=== PATIENT | male | born 1960 | race Caucasian/White ===

== ENCOUNTER → 2017-11-30 17:45 | Outpatient (REF) | payer BC, SELFPAY | LOC: LAB 17:45 | PROVIDERS: Visit Provider Internal Medicine | DX: L72.3 Sebaceous cyst (principal) | CPT/HCPCS: 87070; 87077; 87186; 87205 ==

== ENCOUNTER → 2018-02-15 10:56 | Outpatient (CLI) | payer BC, SELFPAY ==
--- NOTE | 2018-02-15 11:04 | XR_ITS ---
XR foot wt bearing RT 3V HISTORY: Bilateral foot pain ITS.REASON: pain ORDERING PHYSICIAN: Jocelyn Taylor DPM PATIENT AGE: 57 years COMPARISON: None FINDINGS: There are mild osteoarthritic changes of the first metatarsophalangeal joint with a bony spur along the posterior distal aspect of the first metatarsal and some soft tissue calcification along the proximal medial aspect and distal aspect of the first metatarsal. No fracture or dislocation. There is mild pes planus. 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
--- NOTE | 2018-02-15 11:04 | XR_ITS ---
XR foot wt bearing LT 3V HISTORY: ITS.REASON: pain ORDERING PHYSICIAN: Jocelyn Taylor DPM PATIENT AGE: 57 years COMPARISON: FINDINGS: There are minimal osteoarthritic changes of the first metatarsophalangeal joint and there is mild pes planus. Small calcaneal spur also noted at 4 mm. Mild hypertrophic changes are present at the distal aspect of the first metatarsal. No fracture or dislocation. No other significant anomalies. IMPRESSION: Mild osteoarthritis of the first MTP joint with pes planus
== END ==
PROVIDERS: PCP Internal Medicine; Visit Provider Podiatrist
DX: M79.671 Pain in right foot (principal); M79.672 Pain in left foot
CPT/HCPCS: 73630

== ENCOUNTER → 2018-04-05 10:45 | Outpatient (CLI) | payer BC, SELFPAY ==
--- NOTE | 2018-04-05 10:59 | XR_ITS ---
XR hip LT 2-3V w/pelvis HISTORY: ITS.REASON: LEFT HIP PAIN, S/P INJURY ORDERING PHYSICIAN: Ricky Morgan PATIENT AGE: 57 years COMPARISON: None FINDINGS: No fracture or dislocation is evident. No significant degenerative change. No lytic or blastic change. Unremarkable soft tissues IMPRESSION: Negative hip
== END ==
PROVIDERS: PCP Internal Medicine; Visit Provider Internal Medicine
DX: M25.552 Pain in left hip (principal)
CPT/HCPCS: 73502

== ENCOUNTER → 2019-07-08 13:15 | Outpatient (CLI) | payer BC, SELFPAY ==
--- NOTE | 2019-07-08 13:20 | CA_ITS ---
APPROVED REPORT EXAM: Comprehensive 2D, Doppler, and color-flow Echocardiogram Chin Strap Maker: Chrissie Alfaro RVT Ht: 5 ft 11 in Wt: 200lbs BSA: 2.11 BP: 140/90 mmHg Indications: Hypertension/HDD 2D Dimensions LVOT 1.74 cm (M/F) 1.5-2.5 M-Mode Dimensions RVDd 2.96 cm (0.9-2.6) LVDd 4.78 cm (3.5-5.7) LVDs 3.49 cm (3.5-5.7) IVSd 1.10 cm (0.6-1.1) PWd 0.87 cm (0.6-1.1) EF (Teich) 52.60% FS 27.00% EDV (Teich) 106.50 mL ESV (Teich) 50.50 mL LV Diastology E/A Ratio 1.13 Mitral Valve MV A Velocity 63.00 (40-130 cm/s) Left Ventricle Left atrium is mildly enlarged, left ventricle is normal size, mild concentric left ventricular hypertrophy, visually estimated ejection fraction 55% with no regional wall motion abnormality. Grade 1 diastolic dysfunction seen without tissue Doppler evidence of raise left atrial pressure. Right Ventricle Right atrium and right ventricular normal size and contractility. Aortic Valve Aortic valve is minimally thickened and fibrosed. There is no aortic stenosis aortic insufficiency. Mitral Valve Mitral valve is grossly normal, there is mild mitral regurgitation. Tricuspid Valve Tricuspid valve is grossly normal, there is mild tricuspid regurgitation. Tricuspid regurgitation jet velocity is inadequate for calculation of the right ventricular systolic pressure. Pulmonic Valve Pulmonic valve is poorly visualized. Great Vessels Aortic root is normal size. Pericardium No significant pericardial effusion noted. Conclusion 1. Mildly low left atrium, normal left ventricular size, mild concentric left ventricular hypertrophy, visually estimated ejection fraction 55% with no regional wall motion abnormality. Grade 1 diastolic dysfunction seen without tissue Doppler evidence of raise left atrial pressure. 2. Mild mitral and tricuspid regurgitation. 3. No significant pericardial effusion noted. Electronically signed by : John Suggs, 07/08/2019 15:30:09
== END ==
PROVIDERS: PCP Internal Medicine; Visit Provider Internal Medicine
DX: I10 Essential (primary) hypertension (principal)
CPT/HCPCS: 93306

== ENCOUNTER → 2021-04-09 16:25 | Outpatient (CLI) | payer BC, SELFPAY ==
[2021-04-09 18:35] LABS: Prostate Specific Ag, Diagnost 1.14 ng/ml (0.0-4.0)
== END ==
PROVIDERS: Visit Provider Internal Medicine
DX: N40.1 Benign prostatic hyperplasia with lower urinary tract symptoms (principal)
CPT/HCPCS: 84153

== ENCOUNTER → 2021-08-12 10:55 | Outpatient (CLI) | payer BC, SELFPAY | PROVIDERS: PCP Internal Medicine; Visit Provider Nurse Practitioner | DX: Z20.822 Contact with and (suspected) exposure to COVID-19 (principal) | CPT/HCPCS: C9803; U0003; U0005 ==

== ENCOUNTER → 2021-09-17 10:49 | Outpatient (CLI) | payer BC, SELFPAY | PROVIDERS: Visit Provider Nurse Practitioner | DX: U07.1 COVID-19 (principal) | CPT/HCPCS: C9803; U0003; U0005 ==

== ENCOUNTER → 2021-11-15 10:48 | Outpatient (CLI) | payer BC, SELFPAY ==
--- NOTE | 2021-11-15 10:59 | XR_ITS ---
FINAL REPORT CLINICAL HISTORY: pain COMPARISON: February 15, 2018 FINDINGS: LEFT FOOT: Three weight-bearing views of the left foot were obtained. There is no acute fracture or dislocation. There is mild degenerative change. There is a pes planus deformity. There is a small plantar calcaneal spur. There is no soft tissue abnormality. IMPRESSION: Mild degenerative change. Reviewed, Interpreted and Dictated by Robert Candelaria III, MD Transcribed by Jarocho Giles Authenticated by Robert Candelaria III, MD on 11/15/2021 12:40:38 PM [facility]
--- NOTE | 2021-11-15 10:59 | XR_ITS ---
FINAL REPORT CLINICAL HISTORY: pain COMPARISON: February 15, 2018 FINDINGS: RIGHT FOOT: Three weight-bearing views of the right foot were obtained. There is no acute fracture or dislocation. There is [id number] degenerative change of the 1st MTP joint. There is pes planus deformity. There is a small plantar calcaneal spur. There is no soft tissue abnormality. IMPRESSION: [id number] degenerative change of the 1st MTP joint. Reviewed, Interpreted and Dictated by Robert Candelaria III, MD Transcribed by Jarocho Giles Authenticated by Robert Candelaria III, MD on 11/15/2021 12:40:41 PM [facility]
== END ==
PROVIDERS: PCP Internal Medicine; Visit Provider Podiatrist
DX: M79.672 Pain in left foot (principal); M79.671 Pain in right foot
CPT/HCPCS: 73630

== ENCOUNTER → 2022-07-31 11:31 | Outpatient (CLI) | payer BC, SELFPAY ==
[2022-07-31 13:01] LABS: Basophils # 0.1 K/mm3 (0-0.2); Basophils % 1.8 % (0.1-2.0); Eosinophils # 0.1 K/mm3 (0.0-0.4); Eosinophils % 1.2 % (0.1-12.0); Hematocrit 48.6 % (42.0-52.0); Hemoglobin 15.2 g/dL (14.1-18.0); Lymphocytes # 2.7 K/mm3 (0.7-4.5); Lymphocytes % 39.3 % (10-50); Mean Corpuscular HGB Conc 31.2 g/dL (31.8-35.4); Mean Corpuscular Hemoglobin 29.8 pg (27.0-31.2); Mean Corpuscular Volume 95.4 fl (80-94); Mean Platelet Volume 9.1 fl (7.4-10.4); Monocytes # 0.5 K/mm3 (0.1-1.0); Monocytes % 7.7 % (1.7-9.3); Neutrophils # 3.5 K/mm3 (1.8-7.8); Neutrophils % 50.1 % (37.0-80.0); Platelet Count 375 K/mm3 (142-424); Red Blood Count 5.09 M/mm3 (4.60-6.20); Red Cell Distribution Width 13.2 % (11.5-17.5); White Blood Count 6.9 K/mm3 (4.8-10.8)
[2022-07-31 13:31] LABS: Anion Gap 9.1 mEq/L (5-15); Blood Urea Nitrogen 16 mg/dl (9-20); Calcium 9.8 mg/dl (8.4-10.2); Carbon Dioxide 32 mmol/L (22.0-30.0); Chloride 103 mmol/L (98-107); Estimated Glomerular Filt Rate 76 ml/min (>60); GFR (African American) 92 ML/MIN (>60); Glucose 83 mg/dl (74-100); Potassium 4.1 mmoL/L (3.5-5.1); Sodium 140 mmol/L (136-145)
== END ==
PROVIDERS: PCP Internal Medicine; Visit Provider Surgery
DX: L72.3 Sebaceous cyst (principal)
CPT/HCPCS: 36415; 80048; 85025

== ENCOUNTER 2022-09-01 08:06 | Day surgery (SDC) | payer BC, SELFPAY ==
[2022-08-15 10:34] VITALS: BMI 29.2
[2022-09-01] VITALS (11 sets, daily range): BP systolic 121–155; BP diastolic 62–100; PULSE 76–82; RESP 15–18; TEMP 36.4–43; O2SAT 92–97
--- NOTE | 2022-09-01 08:53 | P.HP_ITS ---
HPI HPI HPI: Patient is a 61-year-old male referred by Dr. Morgan for sebaceous cyst on the chest.? I had previously seen the patient for a colonoscopy.? He had developed a small nodule consistent with a sebaceous cyst on the right upper chest many years ago.? He does state that he had previously seen a site surveyor who had advised against excising the area.? He had previously had this drained years ago.? About 4 or 6 weeks ago it had become inflamed and infected and he had incision and drainage performed by his primary care provider.? He was on antibiotics.? Patient states that the area has improved but he is a persistent nodule.? He states that it often swells and increases in size and he squeezes it to drain it in the evenings. [facility] Disclaimer: The information contained in this section may have been updated after the patient was seen, as this information can be updated by other users. Medical History Enlarged prostate History of COVID-19 Surgical History No significant past surgical history Family History No significant family history Social History Smoking Status: Never smoker alcohol intake: never substance use type: denies use current occupational status: employed Travel in the last 8 weeks: None Review of Systems Review of Systems Review of systems:: pertinent systems reviewed and negative unless documented below Meds Home Medications and Allergies Home Medications Medication Instructions Recorded Confirmed Type finasteride 5 mg tablet 0.5 mg PO DAILY enlarged prostate 04/13/18 09/01/22 History 30 days ##30 New Prescriptions to Start Prescriptions: Allergies Allergy/AdvReac Type Severity Reaction Status Date / Time No Known Allergies Allergy Verified 09/01/22 08:29 Exam Data for Last 24 hours Vital signs and Labs for Last 24 Hours: Temp Pulse Resp BP Pulse Ox 98.0 F 76 16 155/100 H 95 09/01/22 08:30 09/01/22 08:30 09/01/22 08:30 09/01/22 08:30 09/01/22 08:30 *Routine HEENT Exam Head: Present normocephalic Eye: Present EOMI ENT: Present mucous membranes moist *Routine Neck Exam Neck: Present supple Routine Chest/Breast/Axilla Exam Comments: Small sebaceous cyst right upper chest. *Routine Respiratory Exam Respiratory: Present accessory muscle use *Routine Cardiovascular Exam Cardiovascular: Present RRR *Routine Abdominal Exam Abdominal: Present soft *Routine Rectal Exam Rectal:: deferred *Routine Genitalia Exam Genitalia:: deferred Assessment and Plan *Assessment and plan (1) Sebaceous cyst: Status: Acute Category: Medical Code(s): L72.3 - Sebaceous cyst Plan Plan for excision hopefully with primary closure.
--- NOTE | 2022-09-01 08:53 | P.HP_ITS ---
[facility] Disclaimer: The information contained in this section may have been updated after the patient was seen, as this information can be updated by other users. Medical History Enlarged prostate History of COVID-19 Surgical History No significant past surgical history Family History No significant family history Social History Smoking Status: Never smoker alcohol intake: never substance use type: denies use current occupational status: employed Travel in the last 8 weeks: None Meds Home Medications and Allergies Home Medications Medication Instructions Recorded Confirmed Type finasteride 5 mg tablet 0.5 mg PO DAILY enlarged prostate 04/13/18 09/01/22 History 30 days ##30 New Prescriptions to Start Prescriptions: Allergies Allergy/AdvReac Type Severity Reaction Status Date / Time No Known Allergies Allergy Verified 09/01/22 08:29 Exam Data for Last 24 hours Vital signs and Labs for Last 24 Hours: Temp Pulse Resp BP Pulse Ox 98.0 F 76 16 155/100 H 95 09/01/22 08:30 09/01/22 08:30 09/01/22 08:30 09/01/22 08:30 09/01/22 08:30 *Routine HEENT Exam Head: Present normocephalic Eye: Present EOMI ENT: Present mucous membranes moist *Routine Respiratory Exam Respiratory: Absent accessory muscle use *Routine Cardiovascular Exam Cardiovascular: Present RRR *Routine Abdominal Exam Abdominal: Present soft *Routine Rectal Exam Rectal:: deferred *Routine Genitalia Exam Genitalia:: deferred
--- NOTE | 2022-09-01 09:38 | P.OP_ITS ---
Date of procedure: 09/01/22 Pre-op Diagnosis:: Sebaceous cyst right upper chest Post-op Diagnosis:: Same Procedure performed:: Excision of noninfected sebaceous cyst right upper chest, (excisional length 3.0 cm) with intermediate complexity closure Surgeon:: Robert Knight MD DISPATCHER CHIEF OIL:: Shant Miller Anesthesia: LMA Estimated blood loss (mL): 7 Operative findings:: Consistent with previously ruptured ill-defined sebaceous cyst with fibrosis Operative note:: Patient was taken the operating room. He was positioned in supine position. General anesthesia was induced via LMA. Area was prepped and draped in the standard surgical fashion. Skin was marked with skin marker for planned crescent-shaped elliptical incision to excise previous incision and drainage scar and skin punctum. Skin incision was made. Incision was carried down through full-thickness of skin to underlying fibrosis consistent with previously inflamed ruptured sebaceous cyst. There was no evidence of any infection. Skin ellipse with residual cyst tissue was dissected free from normal subcutaneous tissue and sent off as a specimen. Wound was irrigated. Hemostasis was achieved with electrocautery. Deep dermal tissues were closed with interrupted 2-0 Vicryl. Skin was closed with interrupted 3-0 nylon. Clean dry sterile dressing was applied. Condition: stable Disposition: PACU Complications:: None immediate
--- NOTE | 2022-09-01 09:43 | P.PN_ITS ---
[facility] Disclaimer: The information contained in this section may have been updated after the patient was seen, as this information can be updated by other users. Medical History Enlarged prostate History of COVID-19 Surgical History No significant past surgical history Family History Other No significant family history Social History Smoking Status: Never smoker alcohol intake: never substance use type: denies use current occupational status: employed Travel in the last 8 weeks: None [facility] Anesthesia Checklist Patient Identification Patient Identification: Arm Band Structural Data Admitted From: Home Planned Operative Procedure/s: Excision of Sebaceous Cyst Right Chest Consent for Planned Operative Procedure(s) Verified: Yes Verified Documents: Surgical Consent and History and Physical NPO Status Verified Time NPO: 00:00 Additional verifications Anesthesia Reactions: No Hx Blood Transfusions: No Blood Transfusion Reaction: No Airway Assessment C-Spine Mobility Assessed: Yes TMJ Mobility Assessed: Yes Dentition: Good Dentition Neurological Assessment Level of Consciousness: Awake and Alert Anesthesia Plan Anesthesia Risk discussed: Yes Anesthesia Plan: Verified ASA Class: II Anesthesia Type: General
--- NOTE | 2022-09-01 09:43 | P.PNANES_ITS ---
[facility] Anesthesia Record Part I Anesthesia Record I Intake, IV Amount: 900 Estimated blood loss (mL): 5 Urine output (mL): 0 Blood Pressure: 131/92 SaO2: 92 Pulse Rate: 80 Respiratory Rate: 16 Temperature: 98.9 F Patient is:: Drowsy and Stable Stable to PACU at:: 09:40
--- NOTE | 2022-09-01 14:46 | P.PNANES_ITS ---
[facility] Anesthesia Record Part II Anesthesia Record Part II Discharge Time: 10:20 Destination: Surgical Day Care (OP Surgery) PACU nurse assessment reviewed?: Yes Patient Condition:: Good Anesthesia Complications:: None Swallowing reflex intact?: Yes Cyanosis?: No Blood Pressure: 131/85 Pulse Rate: 79 Temperature: 97.5 F Mental Status: Alert & Oriented Pain level:: 0 Nausea and/or vomitting:: None Intake, IV Amount: 0
== END 2022-09-01 10:51 | disposition home or self-care (01) ==
PROVIDERS: PCP Internal Medicine; Visit Provider Surgery
PROC: (CPT 11403; principal; 2022-09-01 09:45)
DX: Z79.899 Other long term (current) drug therapy; L72.0 Epidermal cyst
CPT/HCPCS: 11403; 12032; 88304; 96374; J2405

== ENCOUNTER → 2023-05-12 11:36 | Outpatient (CLI) | payer BC, SELFPAY ==
--- NOTE | 2023-05-12 11:44 | XR_ITS ---
FINAL REPORT CLINICAL HISTORY: MEDIAL ANKLE PAIN patient doesnt remember what happened FINDINGS: LEFT ANKLE Three views were obtained. There is no fracture or dislocation. There is a chronic fracture of the distal tibia. There is a small plantar calcaneal spur. The joint spaces appear normal. No soft tissue abnormality is identified. IMPRESSION: No acute process. Reviewed, Interpreted and Dictated by Robert Candelaria III, MD Transcribed by Kelsey Hearn Authenticated and [facility]
== END ==
PROVIDERS: PCP Internal Medicine; Visit Provider Internal Medicine
DX: M25.572 Pain in left ankle and joints of left foot (principal)
CPT/HCPCS: 73610

== ENCOUNTER → 2023-08-04 11:16 | Outpatient (CLI) | payer BC, SELFPAY ==
[2023-08-04 12:06] LABS: Alanine Aminotransferase 34 U/L (12-78); Albumin Level 4.2 g/dl (3.5-5.0); Albumin/Globulin Ratio 1.3 (1.1-1.8); Alkaline Phosphatase 80 U/L (38-126); Anion Gap 11.4 mEq/L (5-15); Aspartate Amino Transferase 30 U/L (17-59); Bilirubin,Total 0.4 mg/dl (0.2-1.3); Blood Urea Nitrogen 18 mg/dl (9-20); Carbon Dioxide 30 mmol/L (22.0-30.0); Chloride 101 mmol/L (98-107); Estimated Glomerular Filt Rate 76 ml/min (>60); GFR (African American) 92 ML/MIN (>60); Globulin 3.2 g/dL (1.3-3.2); Glucose 93 mg/dl (74-100); Potassium 4.4 mmoL/L (3.5-5.1); Sodium 138 mmol/L (136-145); Total Protein,Serum 7.4 g/dl (6.3-8.2)
[2023-08-04 12:09] LABS: Basophils # 0.1 K/mm3 (0-0.2); Basophils % 0.8 % (0.1-2.0); Eosinophils # 0.2 K/mm3 (0.0-0.4); Hematocrit 48.2 % (42.0-52.0); Hemoglobin 15.7 g/dL (14.1-18.0); Lymphocytes # 2.4 K/mm3 (0.7-4.5); Lymphocytes % 31.3 % (10-50); Mean Corpuscular HGB Conc 32.5 g/dL (31.8-35.4); Mean Corpuscular Hemoglobin 30.2 pg (27.0-31.2); Mean Corpuscular Volume 92.8 fl (80-94); Mean Platelet Volume 8.7 fl (7.4-10.4); Monocytes # 0.7 K/mm3 (0.1-1.0); Monocytes % 8.8 % (1.7-9.3); Neutrophils # 4.4 K/mm3 (1.8-7.8); Neutrophils % 57.2 % (37.0-80.0); Platelet Count 329 K/mm3 (142-424); Red Cell Distribution Width 13.8 % (11.5-17.5); White Blood Count 7.6 K/mm3 (4.8-10.8)
[2023-08-04 12:34] LABS: Thyroid Stimulating Hormone 2.54 uIU/mL (0.465-4.68)
[2023-08-04 12:46] LABS: Erythrocyte Sedimentation Rate 8 mm/hr (0-20)
[2023-08-04 13:10] LABS: Vitamin B12 676 pg/mL (239-931)
[2023-08-04 13:11] LABS: Folate > 20.00 ng/mL
[2023-08-04 13:26] LABS: Hemoglobin A1C 5.4 % (4.0-6.0)
[2023-08-05 14:32] LABS: Alpha-1-Globulin 0.2 g/dL (0.0-0.4); Alpha-2-Globulin 0.7 g/dL (0.4-1.0); Gamma Globulin 1.2 g/dL (0.4-1.8); Protein, Total 7.1 g/dL (6.0-8.5)
== END ==
PROVIDERS: PCP Internal Medicine; Visit Provider Internal Medicine
DX: G60.9 Hereditary and idiopathic neuropathy, unspecified (principal); I10 Essential (primary) hypertension; E66.9 Obesity, unspecified; Z68.31 Body mass index [BMI] 31.0-31.9, adult
CPT/HCPCS: 80053; 82607; 82746; 83036; 83655; 84155; 84165; 84443; 85025; 85651

== ENCOUNTER 2024-02-11 09:28 | Outpatient (CLI) | payer BC, SELFPAY ==
[2024-02-11 11:10] LABS: Alanine Aminotransferase 31 U/L (12-78); Albumin Level 4.2 g/dl (3.5-5.0); Albumin/Globulin Ratio 1.5 (1.1-1.8); Alkaline Phosphatase 74 U/L (38-126); Anion Gap 12.2 mEq/L (5-15); Aspartate Amino Transferase 27 U/L (17-59); Bilirubin,Total 0.9 mg/dl (0.2-1.3); Blood Urea Nitrogen 20 mg/dl (9-20); Calcium 9.4 mg/dl (8.4-10.2); Carbon Dioxide 30 mmol/L (22.0-30.0); Chloride 103 mmol/L (98-107); Chol/HDL Ratio 5.8 (1-3.5); Cholesterol 204 mg/dl (140-200); Estimated Glomerular Filt Rate 75 ml/min (>60); GFR (African American) 91 ML/MIN (>60); Globulin 2.8 g/dL (1.3-3.2); Glucose 96 mg/dl (74-100); HDL Cholesterol 35 mg/dl (40-60); Potassium 4.2 mmoL/L (3.5-5.1); Sodium 141 mmol/L (136-145); Triglycerides 121 mg/dl (30-150); VLDL Cholesterol 24 mg/dL (0-40)
== END 2024-02-11 23:59 | disposition home or self-care (01) ==
LOC: LAB 09:29
PROVIDERS: PCP Internal Medicine; Visit Provider Nurse Practitioner Family
DX: I25.119 Atherosclerotic heart disease of native coronary artery with unspecified angina pectoris (principal); I10 Essential (primary) hypertension
CPT/HCPCS: 36415; 80053; 80061